=== PATIENT | male | born 1995 | race Caucasian/White ===

== ENCOUNTER 2021-06-23 18:58 | Emergency (ER) | payer BC, OTHER ==
[2021-06-23] MEDS ORDERED: TETANUS/DIPHTHERIA/PERTUSSIS 0.5 ML SYRINGE IM ONE (19:35)
[2021-06-23] MEDS ORDERED: BUFFERED LIDOCAINE 10 ML SYRINGE SUBQ STA (19:35)
--- NOTE | 2021-06-23 19:36 | ED Physician Documentation ---
PD HPI UPPER EXT INJURY - Stated complaint Stated Complaint: LEFT & RIGHT FINGER LAC - Chief complaint Chief Complaint: Laceration - History obtained from History obtained from: Patient - Additonal information Additional information: This is a right-handed young man who is not sure of his tetanus status in contrast to the nurses notes who cut his left pinky and his right middle finger well doing dishes at home just prior to arrival and the glass broke. The left hand is worse than the right. No other injuries. Review of Systems Constitutional: reports: Reviewed and negative Eyes: reports: Reviewed and negative Ears: reports: Reviewed and negative Nose: reports: Reviewed and negative Throat: reports: Reviewed and negative Cardiac: reports: Reviewed and negative PD PAST MEDICAL HISTORY - Past Medical History Cardiovascular: None Respiratory: None Neuro: None Endocrine/Autoimmune: None GI: None : None HEENT: None Psych: None Musculoskeletal: None - Past Surgical History Past Surgical History: No - Present Medications Home Medications: Ambulatory Orders Medication Instructions Recorded Confirmed No Known Home Medications 06/23/21 06/23/21 - Allergies Allergies/Adverse Reactions: Allergies Allergy/AdvReac Type Severity Reaction Status Date / Time No Known Drug Allergies Allergy Verified 06/23/21 19:02 - Social History Does the pt smoke?: No Smoking Status: Never smoker Does the pt drink ETOH?: No Does the pt have substance abuse?: No - Immunizations Immunizations are current?: No Immunizations: Other immun not current PD ED PE NORMAL - Vitals Vital signs reviewed: Yes - General General: Alert and oriented X 3, No acute distress - Extremities Extremities: Other (On the right middle finger there is a small laceration over the dorsal middle phalanx with out distal neurovascular compromise. On the palmar surface of the left pinky, proximal phalanx there is a 1 cm round gaping tissue avulsion. The flexor tendon is visible and nicked longitudinally) - Neuro Neuro: Alert and oriented X 3, Normal speech Results - Vitals Vitals: Vital Signs - 24 hr 06/23/21 06/23/21 19:02 19:12 Temperature 36.8 C 36.8 C Heart Rate 105 H 105 H Respiratory 16 16 Rate Blood Pressure 137/73 H 137/73 H O2 Saturation 100 100 Oxygen O2 Source Room air Procedures - Laceration (location) R 3rd finger Length in cm: 0.7 Wound type: Linear Neurovascular status: Sensory intact, Motor intact, Vascular intact Tendon involvement: Tendon intact Anesthesia: Lidocaine 1%, With bicarb Wound preparation: Irrigated copiously NS Skin layer closure: Nylon, Interrupted, Size #-0 - enter number (4-0), Sutures - enter # (1) Other: Patient tolerated well, No complications, Neurovascular intact, Tetanus booster given L 5th finger Length in cm: 2 Wound type: Into subcut fat Neurovascular status: Sensory intact, Motor intact, Vascular intact Tendon involvement: Tendon Injury (tiny) Anesthesia: Lidocaine 1%, With bicarb Wound preparation: Irrigated copiously NS Skin layer closure: Nylon, Interrupted, Size #-0 - enter number (4-0), Sutures - enter # (5) Other: Patient tolerated well, No complications, Neurovascular intact, Tetanus booster given PD MEDICAL DECISION MAKING - ED course ED course: On the right middle finger there is a small laceration over the dorsal middle phalanx with out distal neurovascular compromise. On the palmar surface of the left pinky, proximal phalanx there is a 1 cm round gaping tissue avulsion. The flexor tendon is visible and nicked longitudinally but with good function Departure - Departure Disposition: 01 Home, Self Care Clinical Impression: Laceration Condition: Good Record reviewed to determine appropriate education?: Yes Instructions: ED Laceration Hand Follow-Up: Bharathi Holloway MD [Physician No Access] - Comments: As discussed, it is reasonable to follow-up with a hand surgeon to make sure this is healing well given the size of the laceration and tissue loss on the le ft fifth finger. The closest hand surgeon is listed on this form, but you should call [facility] tomorrow to make sure you have a referral. Come back for any signs of infection which would include: Redness, swelling, drainage, increased pain, or fevers. You can wash it soap and water. Keep it covered and moist with bacitracin ointment which is available over the counter; avoid neosporin. Follow-up with your physician in 14 days for suture removal.
[2021-06-23 20:13] VITALS: BP 135/71
== END 2021-06-23 20:17 | disposition home or self-care (01) ==
LOC: ED 18:58
DX: S61.217A Laceration without foreign body of left little finger without damage to nail, initial encounter (principal); S61.212A Laceration without foreign body of right middle finger without damage to nail, initial encounter; W25.XXXA Contact with sharp glass, initial encounter; Y93.G1 Activity, food preparation and clean up; Y92.009 Unspecified place in unspecified non-institutional (private) residence as the place of occurrence of the external cause
CPT/HCPCS: 12002; 90471; 99283